=== PATIENT | female | born 1965 | race Caucasian/White ===

== ENCOUNTER 2016-10-17 09:44 | Day surgery (SDC) | payer SELFPAY ==
[2016-10-17 10:22] VITALS: O2SAT 100
[2016-10-17] MEDS ORDERED: Propofol 10 mg/ml Inj (20 ML) ONE (10:22)
[2016-10-17] MEDS ORDERED: Lactated Ringer's 500 ML IV ONE (10:22)
[2016-10-17 10:51] VITALS: TEMP 97
[2016-10-17 11:12] VITALS: BP 122/62; PULSE 59; RESP 13
== END 2016-10-17 11:13 | disposition home or self-care (01) ==
LOC: H.ENDO 09:44
PROVIDERS: ATTEND Internal Medicine Gastroenterology
DX: Z12.11 Encounter for screening for malignant neoplasm of colon (principal); J45.909 Unspecified asthma, uncomplicated; K64.8 Other hemorrhoids